=== PATIENT | female | born 1985 | race Caucasian/White ===

== ENCOUNTER 2022-09-05 17:41 | Emergency (ER) | payer OTHER ==
--- OUTSIDE RECORDS SUMMARY | 2022-09-05 17:44 | XMS REPORT | Continuity of Care Document ---
:[address] [facility] t Address [address] [place] [address] Care Team Providers Name Role Phone FELIZMOHINDER MAGALYS Primary Care Physician Unavailable MARCELL LICONA Attending Clinician Unavailable Mack Gardner MD Attending Clinician Az Roberts MD Attending Clinician AZ ROBERTS Attending Clinician Unavailable WATSON RADER Attending Clinician Unavailable Watson Rader MD Attending Clinician Marcell Licona MD Attending Clinician Only, [facility] Attending Clinician Unavailable [facility]Lab Attending Clinician Unavailable KARIE PATEL Attending Clinician Unavailable Linda ANGELES, Kraina Redding Attending Clinician Everardo Juarez MD Attending Clinician Beverly MULLIGAN, Holland Attending Clinician Darlene Babcock MD Attending Clinician Ken Chowdary MD Attending Clinician Jatinder MULLIGAN, Kendrick Attending Clinician Mickey MULLIGAN, Svitlana Attending Clinician Baldo Danielle CRNA Attending Clinician Oz MULLIGAN, Cuco Attending Clinician SILVA FONSECA Attending Clinician Unavailable Lolis MAYA, Tatyana Attending Clinician Marvin MULLIGAN, Marybeth Attending Clinician TATYANA DANIELLE Attending Clinician Unavailable Theodore MULLIGAN, Seth Gerard Attending Clinician SETH DODD Attending Clinician Unavailable Doctor Unassigned, [place] Attending Clinician Unavailable Provider, [facility] Attending Clinician Unavailable Harley MAYA, Silva Attending Clinician MARCELL LICONA Admitting Clinician Unavailable Sejal MULLIGAN, Marcell Talbot Admitting Clinician Ken Chowdary MD Admitting Clinician Payers Payer Name Policy Type Policy Number Effective Date Ex[facility] [id number] 2020 PPO 00:00:00 Problems Condition Condition Condition Status Onset Resolution Last Treating Co mments Source Name Details Category Date Date Treatment Clinician Date Abdominal Abdominal Disease Active 2020-09 Overview: Univers pain, pain, 10-16 Formattin ity of epigastric epigastric 00:00: g of this [place] note Medical might be Branch different from the original. Added automatic ally from request for surgery [id number] Rectal Rectal Disease Active 2020-09 Overview: Univer s bleeding bleeding 10-16 Formattin ity of 00:00: g of [place] note Medical might be Branch different from the original. 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 Status post surgery as a child Cholangiti Cholangiti Disease Active Overview : Univers s s 04-18 Formattin ity of 00:00: g of this [place] note is Medical different Branch from the original. . Atrophic left lobe with no suspiciou s focal lesions. The intrahepa ticbile ducts are beaded and irregular with no definite obstructi on/transi tionpoint . Delayed mural enhanceme nt is seen and cholangit is is suspected . ?2. The extra hepatic CBD is not visualize d. The anatomy at the hepatichi lum is not clear and prior postsurgi sergio changes are suspected . Thepancre as is unremarka ble. Obesity Obesity Disease Active Univers (BMI (BMI 8-05 ity of 30-39.9) 30-39.9) 00:00: [place] [id number] Medical Branch COVID-19 COVID-19 Disease Active Overview: Un jayy virus virus 8-05 Formattin ity of infection infection 00:00: [place] of this [place] 00 note is Medical different Branch from the original. SARS-CoV- 2 NAAT (no units) Date Value 1 Positive (A) 1 Not Detected SARS-CoV- 2 Rapid ID NOW (no units) Date Value 1 Positive (A) Generalize Generalize Disease Active Overview : Univers d d 8-04 Formattin ity of abdominal abdominal 00:00: g of this [place] pain pain 00 note Medical might be Branch different from the original. Added automatic ally from request for surgery [id number] Transamini Transamini Disease Active Overview : Univers tis tis 8-04 Formattin ity of 00:00: g of this [place] 00 note Medical might be Branch different from the original. Added automatic ally from request for surgery [id number] Well woman Well woman Disease Active U nivers exam with exam with 7-16 ity of routine routine 00:00: [place] gynecologi gynecologi 00 Me dical sergio exam sergio exam Branch Absence of Absence of Disease Active U nivers menstruati menstruati 7-16 it y of on on 00:00: [place] [address] Medical Branch Allergies, Adverse Reactions, Alerts Allergy Allergy Status Severity Reaction(s) Onset Inactive Treating Comm ents Source Name Type Date Date Clinician NO KNOWN Drug Active Univers ALLERGIE Class ity of S [place] [facility] Social History Social Habit Start Date Stop Date Quantity Comments Source History SDOH University o f Alcohol Std [place] Medical Drinks Branch History SDOH University o f Alcohol Binge [place] [facility] al Branch History [facility] University o f Alcohol Comment [place] [facility] ical Branch Exposure to 2022-03-09 2022-03-19 Not sure University of SARS-CoV-2 00:00:00 15:24:00 [place] Medical (event) Branch Alcohol intake 2022-03-19 2022-03-19 Lifetime University of 00:00:00 00:00:00 non-drinker [place] Medical (finding) Branch History SDOH 2021-03-28 2021-03-28 1 University o f Alcohol Frequency 00:00:00 00:00:00 [facility] edical [place] Tobacco use and 2020-12-23 2020-12-23 Smokeless tobacco Un iversity of exposure 00:00:00 00:00:00 non-user [facility] Sex [birth year] Universit y of 00:00:00 00:00:00 [facility] Smoking Status Start Date Stop Date Source Never smoked tobacco [facility] Medications Ordered Filled Start Stop Current Ordering Indication Dosage Frequency Signature Comments Components Source Medication Medication Date Date Medication? Clinician (SIG) Name Name dicyclomine Yes [id number] 10mg Take 1 Univers 10 mg 9-12 capsule by ity of capsule 00:00: mouth [place] 00 every 6 Medical (six) Branch hours as needed for Abdominal pain. pantoprazol Yes [id number] 40mg Take 1 Univers e 40 mg EC 7-07 tablet by ity of tablet 00:00: mouth [place] 00 daily. Medical Branch pantoprazol Yes [id number] 40mg Take 1 Univers e 40 mg EC 7-07 tablet by ity of tablet 00:00: mouth [place] 00 daily. Medical Branch ondansetron Yes [id number] 4mg Take 1 Univers (ZOFRAN 1-13 tablet by ity of ODT) 4 mg 00:00: mouth [place] disintegrat 00 every 8 Medic al ing tablet (eight) Branch hours as needed for Nausea and Vomiting (N/V). ondansetron Yes [id number] 4mg Take 1 Univers (ZOFRAN 1-13 tablet by ity of ODT) 4 mg 00:00: mouth [place] disintegrat 00 every 8 Medic al ing tablet (eight) Branch hours as needed for Nausea and Vomiting (N/V). dicyclomine 2020-09 Yes [id number] 10mg Take 1 Univers 10 mg 2-02 capsule by ity of capsule 00:00: mouth [place] 00 every 6 Medical (six) Branch hours as needed for Abdominal pain. dicyclomine 2020-09- No [id number] 10mg Take 1 Univers 10 mg 2- capsule by ity of capsule 00:00: 00:00 mouth [place] 00 :00 every 6 Medical (six) Branch hours as needed for Abdominal pain. benzonatate Yes [id number] 200mg Take 2 Univers 100 mg 7-26 capsules ity of capsule 00:00: [place] (two) Medical times Branch daily as needed for Cough. bromphenira Yes [id number] 5mL Take 5 mL Univers mine-pseudo 7-26 by mouth 4 it y of ephedrine-D 00:00: (four[place] (BROMFED 00 times Medical DM) 2-30-10 daily as Bran ch mg/5 mL needed for syrup Congestion /Allergies . benzonatate Yes [id number] 200mg Take 2 Univers 100 mg 7-26 capsules ity of capsule 00:00: [place] (two) Medical times Branch daily as needed for Cough. bromphenira Yes [id number] 5mL Take 5 mL Univers mine-pseudo 7-26 by mouth 4 it y of ephedrine-D 00:00: (four[place] (BROMFED 00 times Medical DM) 2-30-10 daily as Bran ch mg/5 mL needed for syrup Congestion /Allergies . medroxyPROG Yes [id number] 10mg Take 1 Univers ESTERone 7-16 tablet by ity of (PROVERA) 00:00: mouth [place] 10 mg 00 daily. Medical tablet Branch medroxyPROG 0 Yes [id number] 10mg Take 1 Univers ESTERone 7-16 tablet by ity of (PROVERA) 00:00: mouth [place] 10 mg 00 daily. Medical tablet Branch Immunizations Ordered Filled Immunization Date Status Comments [facility] e Immunization Name Name SARS-COV-2 COVID-19 2021-05-31 Completed Unive rsity of PFIZER VACCINE 00:00:00 [facility] SARS-COV-2 COVID-19 2021-05-31 Completed Unive rsity of PFIZER VACCINE 00:00:00 [facility] SARS-COV-2 COVID-19 2021-04-24 Completed Unive rsity of PFIZER VACCINE 00:00:00 [facility] SARS-COV-2 COVID-19 2021-04-24 Completed Unive rsity of PFIZER VACCINE 00:00:00 [facility] Vital Signs Vital Name Observation Time Observation Value Comments Source Systolic blood 2022-03-19 20:28:00 119 mm[Hg] Univer sity of pressure [facility] Diastolic blood 2022-03-19 20:28:00 80 mm[Hg] Unive rsity of pressure [facility] Heart rate 2022-03-19 20:28:00 73 /min [facility] Body temperature 2022-03-19 20:28:00 36.56 Mandie Univ ersity [facility] Body height 2022-03-19 20:28:00 160 cm [facility] Body weight 2022-03-19 20:28:00 85.775 kg [facility] BMI 2022-03-19 20:28:00 33.50 kg/m2 [facility] Oxygen saturation in 2022-03-19 20:28:00 98 /min [facility] Arterial blood by [facility] Pulse oximetry [place] Procedures This patient has no known procedures. Encounters Start End Encounter Admission Attending Care Care Encounter Source Date/Time Date/Time Type Type Clinicians Facility Department ID 2021-08-15 Outpatient R MARCELL LICONA [facility] FARAZ [id number] Univers 09:34:46 ity of [facility] 2021-07-14 Emergency [facility] [id number] Univers 13:10:47 ity [facility] 2022-06-18 2022-06-18 Outpatient R [facility] [id number] Univers 15:30:00 15:30:00 ity of [facility] 2022-05-25 2022-05-25 Refenoc Gardner [facility] 1.2.840.114 [id number] Univers 00:00:00 00:00:00 Mack KUMAR [id number] ity of [facility] 4.2.7.2.686 [facility] AT [phone] Al justin GARICA 072 Branch [place] 2022-03-19 2022-03-19 Office Mack Gardner [facility] 1.2.840.114 [id number] Univers 15:30:00 16:00:00 Visit Az Roberts SPECIALTY [id number] ity of [place].686 [place] [phone] Al justin GARCIA 072 [facility] 2022-03-19 2022-03-19 Outpatient R COLTON [facility] [id number] Univers 15:30:00 15:30:00 [place] ity [facility] 2022-01-01 2022-01-01 Outpatient R [facility] [id number] Univers 15:30:00 15:30:00 ity [facility] 2021-09-25 2021-09-25 [facility] [id number] Univers 16:00:00 16:52:13 [facility] 2021-09-25 2021-09-25 Office Mcak Gardner [facility] 1.2.840.114 [id number] Univers 16:00:00 16:52:13 Visit Watson Rader SPECIALTY [id number] ity of CARE 4.2.7.2.686 [facility] AT [phone] Al justin GARCIA [address] [place] [address] 2021-09-04 2021-09-04 Outpatient R MARCELL LICONA [facility] [place] [id number] Univers 10:09:00 12:45:00 ity [facility] 2021-09-04 2021-09-04 [facility] 1.2.840.114 [id number] Univers 10:09:00 12:45:00 Encounter [facility] [id number] ity of [place] 4.2.7.2.686 [facility] [phone] [address] ([facility]) 2021-09-04 2021-09-04 [facility] [id number] Univers 11:30:00 12:15:00 Wins[place] SPECIALTY [id number] ity of C[place]2.686 [place] [phone] Al justin GARCIA 020 [facility] 2021-09-03 2021-09-03 Hospital CARL Rader 1.2.840.114 [id number] Univers 08:49:50 23:59:00 Encounter [facility] [id number] ity of CLINICS 4.2.[place].2.686 [place] [phone] [facility] [address] [place] 2021-09-03 2021-09-03 Outpatient R MARCELL LICONA [facility] [id number] Univers 08:30:00 10:05:31 [facility] 2021-09-03 2021-09-03 Laboratory Only, [facility] UNIVERSIT 1.2.84 0.114 [id number] Univers 08:30:00 08:45:00 Only [facility]cell [facility]icon[facility] [id number] ity of CL[place]ICS 4.2.[place].2.686 [place] [phone] [facility] [address] [place] 2021-08-14 2021-08-14 Middleware Architect Vls-Lab [facility] 1.2.840.114 [id number] Univers 16:23:52 16:38:52 Visit Watson Rader SPECIALTY [id number] ity of C[place] 4[place].2.686 [place] [phone] Al justin GARCIA 353 [facility] 2021-08-14 2021-08-14 Outpatient R RAMYA [facility] [id number] Univers 16:30:00 16:30:00 WATSON green [facility] 2021-08-14 2021-08-14 Office Mack Gardner [facility] 1.2.840.114 [id number] Univers 14:42:39 15:12:39 Visit Watson Rader SPECIALTY [id number] ity of C[place] 4.2.[place].2.686 [place] [phone] Al justin GARCIA 072 [facility] 2021-08-14 2021-08-14 Outpatient R RAMYA [facility] [id number] Univers 15:00:00 15:00:00 WATSON green [facility] 2021-08-11 2021-08-11 Telephone Jj [facility] 1.2.999.129 [id number] Univers 00:00:00 00:00:00 Mack SPECIALTY [id number] ity of C[place] 4[place]2.686 [place] [phone] Al justin GARCIA 072 [facility] 2021-07-28 2021-07-28 Telephone Jj [facility] 1.2.951.270 [id number] Univers 00:00:00 00:00:00 Mack SPECIALTY [id number] ity of C[place]2.686 [place] [phone] Al justin GARCIA [address] [place] [address] 2021-07-25 2021-07-25 Emergency E AMANDA, [facility]BL MED [id number] [facility] 09:35:00 17:05:00 SAB 2021-06-12 2021-06-12 Middleware Architect Vls-Lab [facility] 1.2.840.114 [id number] Univers 15:32:43 15:47:43 Visit Watson Rader SPECIALTY [id number] ity of C[place] 4.2.[place].2.686 [place] [phone] Al justin GARCIA 353 [facility] 2021-06-12 2021-06-12 Office Mack Gardner [facility] 1.2.840.114 [id number] Univers 14:43:26 15:13:26 Visit Watson Rader SPECIALTY 350.1.13.10 ity of C[place] 4.[place].2.686 [place] [phone] Al justin GARCIA 072 [facility] 2021-06-12 2021-06-12 Outpatient R [facility] [id number] Univers 15:00:00 15:00:00 ity of [facility] 2021-04-25 2021-04-25 Transition Dion Mckeon 1.2.840.114 [id number] Univers 00:00:00 00:00:00 of Care Karina Garrido 350.1.13.10 i ty of [place].2.686 [place] [phone] [address] 2021-04-16 2021-04-24 Hospital Everardo Juarez 1.2.840.1 14 [id number] Univers 15:15:00 15:43:00 Encounter [place] Paul [id number] ity of [facility] 4.2.7.2.686 [place] Ken Chowdary [phone] Medical 096 Branch 2021-04-22 2021-04-22 Surgery Pallmaegan, 1.2.840.9 [id number] Univers 15:55:00 17:25:00 Marks 97006.1.1 ity of 3.104.2.7 [place] .3.878481 Medica l .8 Branch 2021-04-22 2021-04-22 Anesthesia Svitlana Arevalo 1.2.840.6 [id number] Univers 14:05:00 15:48:00 Event Baldo Danielle 60104.1.1 ity of 3.104.2.7 [place] .3.787578 Medica l .8 Branch 2021-04-22 2021-04-22 Anesthesia [place], 1.2.840.1 [id number] Univers 10:18:57 10:18:57 Event Cuco 44662.1.1 ity of 3.104.2.7 [place] .3.592281 Medica l .8 Branch 2021-04-22 2021-04-22 Travel 1.2.840.1 1.2.769.530 [id number] Univers 00:00:00 00:00:00 29488.1.1 350.1.13.10 ity of 3.104.2.7 4.2.7.3.698 [place] .3.557579 084.8 Medica l .8 Branch 2021-04-16 2021-04-16 Travel 1.2.840.1 1.2.423.514 [id number] Univers 00:00:00 00:00:00 63706.1.1 350.1.13.10 ity of 3.104.2.7 4.2.7.3.698 [place] .3.931084 084.8 Medica l .8 Branch 2021-04-08 2021-04-08 Outpatient Leo FONSECA [facility] [id number] Univers 08:00:00 08:00:00 SILVA ity of [facility] 2021-04-07 2021-04-07 Urgent Tatyana Danielle 1.2.840.8 [id number] Univers 08:00:27 09:35:48 Care Marybeth Wong 11301.1.1 ity of 3.104.2.7 [place] .3.262650 Medica l .8 [place] 2021-04-07 2021-04-07 Outpatient R LOLIS [facility] [id number] Univers 09:00:00 09:00:00 TATYANA ity of [facility] 2021-04-06 2021-04-06 Travel 1.2.840.1 1.2.506.401 [id number] Univers 00:00:00 00:00:00 59336.1.1 350.1.13.10 ity of 3.104.2.7 4.2.7.3.698 [place] .3.033895 084.8 Medica l .8 [place] 2021-03-28 2021-03-28 Office Seth Dodd 1.2.840.2 [id number] Univers 11:48:37 13:00:55 Visit Cam 40475.1.1 ity of 3.104.2.7 [place] .3.477370 Medica l .8 [place] 2021-03-28 2021-03-28 Outpatient R SETH DODD [facility] [id number] Univers 11:45:00 11:45:00 ity of [facility] 2021-03-28 2021-03-28 Orders Doctor 1.2.840.4 [id number] Univers 00:00:00 00:00:00 Only Unassigned, 51413.1.1 ity of [place] 3.104.2.7 [place] .3.873324 Medica l .8 [place] 2021-03-28 2021-03-28 Travel 1.2.840.1 1.2.260.414 [id number] Univers 00:00:00 00:00:00 22950.1.1 350.1.13.10 ity of 3.104.2.7 4.2.7.3.698 [place] .3.569544 084.8 Medica l .8 Branch 2020-12-23 2020-12-23 Urgent Provider, [facility] 1.2.840.114 [id number] Univers 09:44:52 10:04:52 [facility] 350.1.13.10 ity [facility] 4.2.7.2.686 [place] as Deborah [phone] Al diccallie formerly [facility] [address] [place] [address] 2020-12-23 2020-12-23 Outpatient R [facility] [id number] Univers 09:40:00 09:40:00 ity of [facility] Results This patient has no known results.
[2022-09-05 18:09] LABS: Urine Blood Negative (Negative); Urine Glucose Trace (Negative); Urine Protein 1+ (Negative)
[2022-09-05] MEDS ORDERED: METOCLOPRAMIDE 10 MG/2mL INJ ONE (18:48)
[2022-09-05] MEDS ORDERED: DIPHENHYDRAMINE 50 MG/ML VIAL ONE (18:48)
[2022-09-05] MEDS ORDERED: LORazepam 2 MG/ML VIAL ONE (18:48)
[2022-09-05] MEDS ORDERED: FAMOTIDINE 20 MG/2 ML VIAL IV ONE (18:49)
[2022-09-05] MEDS ORDERED: NA CHLORIDE 0.9% 250 ML ONE (18:49)
[2022-09-05] MEDS ORDERED: NA CHLORIDE 0.9% 1,000 ML ONE (18:49)
[2022-09-05 18:56] LABS: Absolute Lymphocytes (CBC) 0.4 K/uL (0.7-4.9); Hematocrit 41.1 % (36.0-45.0); Lymphocytes % 6.5 % (15.3-44.8); MCV 87.7 fL (80-100); MPV 7.8 fL (7.6-11.3); RBC Red Blood Cell Count 4.69 M/uL (3.86-4.86)
[2022-09-05] MEDS ORDERED: ACETAMINOPHEN 325 MG TABLET ONE (19:01)
[2022-09-05 19:14] LABS: Albumin 3.9 g/dL (3.4-5.0); Bilirubin Total 4.5 mg/dL (0.2-1.0); Potassium 3.3 mmol/L (3.5-5.1)
[2022-09-05 19:44] LABS: SARS-COV-2 RT PCR NEGATIVE (NEGATIVE)
--- NOTE | 2022-09-05 19:50 | RAD REPORT ---
EXAM DESCRIPTION: CTAbdomen Pelvis W Contrast - 09/05/2022 7:38 pm CLINICAL HISTORY: Abdominal pain. abdominal pain COMPARISON: CT ABD PELVIS W CONTRAST dated 01/27/2012; MRI ABDOMEN W WO CONTRAST dated 01/28/2012; MRI CHOLANGIOGRAM dated 01/28/2012; CT ABD PELVIS W CONTRAST dated 09/27/2010 TECHNIQUE: Biphasic CT imaging of the abdomen and pelvis was performed with 100 ml non-ionic IV cont rast. All CT scans are performed using dose optimization technique as appropriate and may include automated exposure control or mA/KV adjustment according to patient size. FINDINGS: The lung bases are clear. There are numerous cystic lesions seen in the left lobe of the liver with evidence of left lobe bilia ry dilatation. The duodenal C-loop comes into close approximation with the hepatic hilum. The left br anch of the portal vein is is not well seen and may be chronically thrombosed. The gallbladder is eit her decompressed or not present. The spleen, visualized pancreas, adrenal glands and kidneys are with in normal limits. . No bowel obstruction, free air, free fluid or abscess. Mild rectosigmoid fecal retention. The appendi x is normal. No evidence of significant lymphadenopathy. No suspicious bony findings. IMPRESSION: There is an abnormal appearance to the left lobe liver with multiple areas of cystic dil atation of the biliary tree noted. The gallbladder is either decompressed or absent. These abnormal f indings in the left lobe were present as far back as 2011 study, appearing somewhat less prominent on today's study. Elsewhere, no acute abnormality is detected.
--- NOTE | 2022-09-05 20:16 | ER ---
Nurse's Notes [facility] Name: Francine Brunson Age: 37 yrs Sex: Female : 1985 Arrival Date: 09/05/2022 Time: 17:42 Bed 20 Private MD: Diagnosis: Nausea with vomiting, unspecified;Abdominal pain, unspecified;Abnormal results of liver function studies Presentation: 09/05 17:52 Chief complaint: Patient states: abdominal pain that radiates around both sides to ph back, also c/o N/V, states that she has a hx of GI issues, that this episode started while she was out of town, seen at ER and prescribed medications but she can't keep them down. Coronavirus screen: Vaccine status: Patient reports receiving the 2nd dose of the covid vaccine. Ebola Screen: No symptoms or risks identified at this time. Initial Sepsis Screen: Does the patient meet any 2 criteria? No. Patient's initial sepsis screen is negative. Does the patient have a suspected source of infection? No. Patient's initial sepsis screen is negative. Risk Assessment: Do you want to hurt yourself or someone else? Patient reports no desire to harm self or others. Onset of symptoms was September 05, 2022. 17:52 Method Of Arrival: Ambulatory 17:52 Acuity: BUSHRA 3 ph Triage Assessment: 17:55 General: Appears in no apparent distress. uncomfortable, Behavior is calm, cooperative, ph appropriate for age. Pain: Complains of pain in abdomen Pain radiates to back. Neuro: Level of Consciousness is awake, alert, obeys commands, Oriented to person, place, time, situation. GI: Reports lower abdominal pain, upper abdominal pain, nausea, vomiting. Historical: - Allergies: 17:54 Latex, Natural Rubber; ph - Immunization history:: Adult Immunizations unknown. - Social history:: Smoking status: Patient denies any tobacco usage or history of. Screenin:30 [facility] ED Fall Risk Assessment (Adult) History of falling in the last 3 months, ko1 including since admission No falls in past 3 months (0 pts) Confusion or Disorientation No (0 pts) Intoxicated or Sedated No (0 pts) Impaired Gait No (0 pts) Mobility Assist Device Used No (0 pt) Altered Elimination No (0 pt) Score/Fall Risk Level 0 - 2 = Low Risk Oriented to surroundings, Maintained a safe environment, Educated pt \T\ family on fall prevention, incl call for assistance when getting out of bed, Assessed \T\ reinforced patient's understanding of fall precautions, Provided non-skid footwear, Hourly rounding (assess needs \T\ fall precautionary measures) done. Abuse screen: Denies threats or abuse. Denies injuries from another. Nutritional screening: No deficits noted. Tuberculosis screening: No symptoms or risk factors identified. Assessment: 18:30 General: Appears in no apparent distress. uncomfortable, Behavior is calm, cooperative, ko1 appropriate for age. Pain: Complains of pain in back and abdomen. Neuro: No deficits noted. Cardiovascular: No deficits noted. Respiratory: No deficits noted. GI: Bowel sounds present X 4 quads. Reports lower abdominal pain. GI: Abd is soft Abdomen is tender to palpation. : No deficits noted. EENT: No deficits noted. Derm: No deficits noted. Musculoskeletal: No deficits noted. 19:28 General: Appears comfortable, Behavior is calm, cooperative. Pain: Complains of pain in ha1 abdomen Pain does not radiate. Pain currently is 7 out of 10 on a pain scale. Alleviated by medications. Neuro: Level of Consciousness is awake, alert, obeys commands, Oriented to person, place, time, situation. Cardiovascular: Capillary refill < 3 seconds Patient's skin is warm and dry. Respiratory: Airway is patent Respiratory effort is even, unlabored, Respiratory pattern is regular, symmetrical. GI: Abdomen is flat, non-distended, Bowel sounds present X 4 quads. Abd is soft Abdomen is tender to palpation Reports lower abdominal pain, vomiting. : No signs and/or symptoms were reported regarding the genitourinary system. EENT: No deficits noted. No signs and/or symptoms were reported regarding the EENT system. Derm: Skin is pink, warm \T\ dry. Musculoskeletal: Circulation, motion, and sensation intact. Range of motion: intact in all extremities. 20:20 Reassessment: Patient and/or family updated on plan of care and expected duration. Pain ha1 level reassessed. Patient is alert, oriented x 3, equal unlabored respirations, skin warm/dry/pink. 21:20 Reassessment: Patient and/or family updated on plan of care and expected duration. Pain ha1 level reassessed. Patient is alert, oriented x 3, equal unlabored respirations, skin warm/dry/pink. 22:05 Reassessment: Patient and/or family updated on plan of care and expected duration. Pain ha1 level reassessed. Patient is alert, oriented x 3, equal unlabored respirations, skin warm/dry/pink. pain 9/10. 23:00 Reassessment: Patient and/or family updated on plan of care and expected duration. Pain ha1 level reassessed. Patient is alert, oriented x 3, equal unlabored respirations, skin warm/dry/pink. Vital Signs: 17:52 BP 113 / 53; Pulse 106; Resp 20; Temp 98.4; Pulse Ox 100% on R/A; Weight 86.18 kg; ph Height 5 ft. 3 in. (160.02 cm); Pain 10/10; 18:58 Temp 102.1(O); ph 19:32 BP 107 / 56; Pulse 102; Resp 19 S; Pulse Ox 99% on R/A; ha1 21:15 BP 108 / 50; Pulse 101; Resp 20; Temp 101.6; Pulse Ox 100% on R/A; ha1 22:10 BP 110 / 56; Pulse 100; Resp 20 S; Temp 98.1; ha1 23:00 BP 114 / 60; Pulse 103; Resp 19 S; Pulse Ox 100% on R/A; ha1 17:52 Body Mass Index 33.66 (86.18 kg, 160.02 cm) ph ED Course: 17:42 Patient arrived in ED. as 17:45 Joseph Myers PA is PHCP. [facility] 17:45 Lynsey Foote MD is Attending Physician. jm 17:54 Triage completed. ph 17:55 Arm band placed on Patient placed in an exam room. ph 18:06 Chela Carty, BRIDGETTE is Primary Nurse. ko1 18:21 Patient has correct armband on for positive identification. Placed in gown. Bed in low mm9 position. Call light in reach. Side rails up X 1. Warm blanket given. Pillow given. Pulse ox on. NIBP on. 18:21 Missed attempt(s): 20 gauge in right antecubital area. mm9 18:21 Urine collected: clean catch specimen, tea colored. mm9 19:04 COVID-19/FLU A+B Sent. ph 19:40 CT Abd/Pelvis - IV Contrast Only In Process Unspecified. EDMS 20:50 Initiated transfer to [facility] per Pt request, spoke with Gladis. wm 21:34 Pt accepted for transfer by Dr. Schmitz, Sep. wm 21:49 Inserted saline lock: 20 gauge in right antecubital area, using aseptic technique. bb 22:40 No provider procedures requiring assistance completed. ha1 22:40 Patient transferred, IV remains in place. ha1 Administered Medications: 18:57 Drug: Reglan (metoCLOPramide) 20 mg Route: IVP; Site: left antecubital; ph 18:58 Drug: NS 0.9% 1000 ml Route: IV; Rate: 1 bolus; Site: left antecubital; ph 18:58 Drug: Pepcid (famotidine) 20 mg Route: IVP; Site: left antecubital; ph 18:58 Drug: diphenhydrAMINE 25 mg Route: IVP; Site: left antecubital; ph 18:58 Drug: Ativan (LORazepam) 1 mg Route: IVP; Site: left antecubital; ph 19:04 Drug: Tylenol 650 mg Route: PO; ph 21:30 Drug: Ibuprofen 800 mg Route: PO; ha1 22:05 Drug: Zosyn (piperacillin-tazobactam) 3.375 grams Route: IVPB; Infused Over: 60 mins; ha1 Site: right antecubital; 22:07 Drug: NS 0.9% 1000 ml Route: IV; Rate: 1 bolus; Site: right antecubital; ha1 22:07 Drug: NS 0.9% 1000 ml Route: IV; Rate: 125 ml/hr; Site: right antecubital; ha1 22:40 Follow up: Response: No adverse reaction; IV Status: Infusion continued ha1 22:25 Drug: Zofran (Ondansetron) 4 mg Route: IVP; Site: right antecubital; ha1 22:40 Follow up: Response: No adverse reaction ha1 22:26 Drug: morphine 4 mg Route: IVP; Infused Over: 4 mins; Site: right antecubital; ha1 22:40 Follow up: Response: No adverse reaction; Pain is decreased; RASS: Alert and Calm (0) ha1 Medication: 22:40 VIS not applicable for this client. ha1 Outcome: 20:15 ER care complete, transfer ordered by MD. calzada 22:40 Condition: stable ha1 22:40 Transferred by ground EMS to [facility]. ha1 22:40 Discharge instructions given to patient, Instructed on the need for transfer, Demonstrated understanding of instructions. 23:16 Patient left the ED. ha1 Signatures: Dispatcher [employer] EDMS Joseph Myers PA PA jmm Martinez, Amelia as Ballard, Brenda RN RN bb Nhi Knox RN RN ph Rickie Miller PA PA cp Marsh, Wendy wm Ayala, Heidy, RN RN ha1 Chela Carty RN RN ko1 Mila Fischer mm9 Corrections: (The following items were deleted from the chart) 19:05 17:52 BP 113 / 53; Pulse 06bpm; Resp 20bpm; Pulse Ox 100% RA; Temp 98.4F; 86.18 kg; ph Height 5 ft. 3 in.; BMI: 33.6; Pain 10/10; ph 22:20 20:50 Inititated transfer to [facility] per Pt request, spoke with Gladis mcnulty 09/06 08:26 12 22:40 Response: No adverse reaction; Pain is decreased; RASS: Alert and Calm (0) ha1 ha1
--- NOTE | 2022-09-05 20:16 | EDPHYS ---
Physician Documentation [facility] Name: Francine Brunson Age: 37 yrs Sex: Female : 1985 Arrival Date: 09/05/2022 Time: 17:42 Bed 20 Private MD: ED Physician Lynsey Foote HPI: 09/05 17:54 This 37 yrs old Female presents to ER via Ambulatory with complaints of Abdominal Pain, jmm Back Pain, Vomiting. 17:54 The patient presents with abdominal pain. Onset: The symptoms/episode began/occurred jmm gradually, 2 day(s) ago. Associated signs and symptoms: Pertinent positives: nausea and vomiting. The symptoms are described as achy, burning. Modifying factors: The symptoms are alleviated by nothing, the symptoms are aggravated by nothing. The patient has experienced similar episodes in the past, chronically. Historical: - Allergies: 17:54 Latex, Natural Rubber; ph - Immunization history:: Adult Immunizations unknown. - Social history:: Smoking status: Patient denies any tobacco usage or history of. ROS: 17:54 Constitutional: Negative for fever, chills, and weight loss, Cardiovascular: Negative jmm for chest pain, palpitations, and edema, Respiratory: Negative for shortness of breath, cough, wheezing, and pleuritic chest pain. 17:54 Abdomen/GI: Positive for abdominal pain. 17:54 All other systems are negative. Exam: 17:54 Constitutional: This is a well developed, well nourished patient who is awake, alert, jmm and in no acute distress. Head/Face: atraumatic. Eyes: EOMI, no conjunctival erythema appreciated ENT: Moist Mucus Membranes Neck: Trachea midline, Supple Chest/axilla: Normal chest wall appearance and motion. Cardiovascular: Regular rate and rhythm. No edema appreciated Respiratory: Normal respirations, no respiratory distress appreciated 17:54 Back: Normal ROM Skin: General appearance color normal MS/ Extremity: Moves all extremities, no obvious deformities appreciated, no edema noted to the lower extremities Neuro: Awake and alert Psych: Behavior is normal, Mood is normal, Patient is cooperative and pleasant 17:54 Abdomen/GI: Inspection: abdomen appears normal, Bowel sounds: normal, Palpation: soft, mild abdominal tenderness, in all quadrants. Vital Signs: 17:52 BP 113 / 53; Pulse 106; Resp 20; Temp 98.4; Pulse Ox 100% on R/A; Weight 86.18 kg; ph Height 5 ft. 3 in. (160.02 cm); Pain 10/10; 18:58 Temp 102.1(O); ph 19:32 BP 107 / 56; Pulse 102; Resp 19 S; Pulse Ox 99% on R/A; ha1 21:15 BP 108 / 50; Pulse 101; Resp 20; Temp 101.6; Pulse Ox 100% on R/A; ha1 22:10 BP 110 / 56; Pulse 100; Resp 20 S; Temp 98.1; ha1 23:00 BP 114 / 60; Pulse 103; Resp 19 S; Pulse Ox 100% on R/A; ha1 17:52 Body Mass Index 33.66 (86.18 kg, 160.02 cm) ph MDM: 17:54 Patient medically screened. [facility] 18:26 Data reviewed: vital signs, nurses notes. Counseling: I had a detailed discussion with [facility] the patient and/or guardian regarding: the historical points, exam findings, and any diagnostic results supporting the discharge/admit diagnosis. 21:35 Physician consultation: was contacted at 21:30, regarding regarding transfer, to [facility]. cp patient's condition, accepting physician will be DR Vicente Stoll 09/05 17:55 Order name: CBC with Diff; Complete Time: 19:01 [facility] 09/05 17:55 Order name: CMP; Complete Time: 19:17 [facility] 09/05 17:55 Order name: Lipase; Complete Time: 19:17 [facility] 09/05 18:09 Order name: Urine Dipstick-Ancillary; Complete Time: 18:11 [facility] 09/05 18:56 Order name: COVID-19/FLU A+B; Complete Time: 19:52 [facility] 09/05 17:55 Order name: CT Abd/Pelvis - IV Contrast Only; Complete Time: 19:52 [facility] 09/05 17:55 Order name: IV Saline Lock; Complete Time: 18:57 [facility] 09/05 17:55 Order name: Labs collected and sent; Complete Time: 18:57 [facility] 09/05 17:55 Order name: Urine Dipstick-Ancillary (obtain specimen); Complete Time: 18:09 [facility] 09/05 17:55 Order name: Urine Test (obtain specimen); Complete Time: 18:09 [facility] Administered Medications: 18:57 Drug: Reglan (metoCLOPramide) 20 mg Route: IVP; Site: left antecubital; ph 18:58 Drug: NS 0.9% 1000 ml Route: IV; Rate: 1 bolus; Site: left antecubital; ph 18:58 Drug: Pepcid (famotidine) 20 mg Route: IVP; Site: left antecubital; ph 18:58 Drug: diphenhydrAMINE 25 mg Route: IVP; Site: left antecubital; ph 18:58 Drug: Ativan (LORazepam) 1 mg Route: IVP; Site: left antecubital; ph 19:04 Drug: Tylenol 650 mg Route: PO; ph 21:30 Drug: Ibuprofen 800 mg Route: PO; ha1 22:05 Drug: Zosyn (piperacillin-tazobactam) 3.375 grams Route: IVPB; Infused Over: 60 mins; ha1 Site: right antecubital; 22:07 Drug: NS 0.9% 1000 ml Route: IV; Rate: 1 bolus; Site: right antecubital; ha1 22:07 Drug: NS 0.9% 1000 ml Route: IV; Rate: 125 ml/hr; Site: right antecubital; ha1 22:40 Follow up: Response: No adverse reaction; IV Status: Infusion continued ha1 22:25 Drug: Zofran (Ondansetron) 4 mg Route: IVP; Site: right antecubital; ha1 22:40 Follow up: Response: No adverse reaction ha1 22:26 Drug: morphine 4 mg Route: IVP; Infused Over: 4 mins; Site: right antecubital; ha1 22:40 Follow up: Response: No adverse reaction; Pain is decreased; RASS: Alert and Calm (0) ha1 Disposition Summary: 09/05/22 20:15 Transfer Ordered Transfer Location: [facility] cp Reason: Higher level of care cp Condition: Stable cp Problem: new cp Symptoms: have improved cp Accepting Physician: DR Vicente Chowdary(09/05/22 23:16) ha1 Diagnosis - Nausea with vomiting, unspecified cp - Abdominal pain, unspecified cp - Abnormal results of liver function studies cp Forms: - Medication Reconciliation Form cp - SBAR form cp Signatures: Dispatcher [employer] EDNH Heatheril, Joseph, PA PA jmm Knox, Nhi, RN RN ph Rickie Miller PA PA cp Ayala, Heidy, RN RN ha1 Corrections: (The following items were deleted from the chart) 22:45 20:15 Doctor zheng cp 23:16 22:45 DR Vicente Chowdary cp ha1
[2022-09-05] MEDS ORDERED: NA CHLORIDE 0.9% 100 ML IV ONE (20:21)
[2022-09-05] MEDS ORDERED: PIPERACIL/TAZO 3.375 GM VIAL IV ONE (20:21)
[2022-09-05] MEDS ORDERED: NA CHLORIDE 0.9% 2,000 ML ONE (21:46)
[2022-09-05] MEDS ORDERED: IBUPROFEN 400 MG TAB ONE (22:14)
[2022-09-05] MEDS ORDERED: MORPHINE 4 MG/ML SYR ONE (22:14)
[2022-09-05] MEDS ORDERED: ONDANSETRON 4 MG/2 ML VIAL ONE (22:14)
[2022-09-05 23:26] VITALS: O2SAT 100
[2022-09-05 23:27] VITALS: TEMP 98.1
[2022-09-05 23:28] VITALS: BP 114/60
== END 2022-09-05 23:16 | disposition short-term general hospital (02) ==
LOC: ER 17:41
DX: R10.30 Lower abdominal pain, unspecified (principal); R11.2 Nausea with vomiting, unspecified; R94.5 Abnormal results of liver function studies; Z20.822 Contact with and (suspected) exposure to COVID-19; Z91.040 Latex allergy status; Z91.048 Other nonmedicinal substance allergy status
CPT/HCPCS: 85025; 36415; 81003; 83690; 80053; 0240U; 74177; Q9967; J2765; J1200; J2543; J7050; J7030 ×2; J2405; 99285

== ENCOUNTER 2024-05-19 13:05 | Emergency (ER) | payer OTHER ==
[2024-05-19] MEDS ORDERED: ONDANSETRON 4 MG/2 ML VIAL ONE (13:45)
[2024-05-19] MEDS ORDERED: MORPHINE 4 MG/ML SYR ONE (13:46)
[2024-05-19 13:52] LABS: Specific Gravity 1.005 (1.005-1.030)
[2024-05-19 13:53] LABS: Specific Gravity 1.005 (1.005-1.030); Sqamous Epithelial <5 /HPF (None Seen); Urine Bacteria <20 /HPF (<20); Urine Bilirubin NEGATIVE (Negative); Urine Blood Negative (Negative); Urine Clarity Turbid (Clear); Urine Color Colorless (Yellow); Urine Culture Reflex Order REFLEXED; Urine Glucose NEGATIVE (Negative); Urine Ketones NEGATIVE (Negative); Urine Microscopic Reflex YN ORDER UMIC; Urine Nitrite NEGATIVE (Negative); Urine Protein NEGATIVE (Negative); Urine RBC None Seen /HPF (None Seen); Urine Urobilinogen Normal (Normal)
[2024-05-19 15:08] LABS: Absolute Eosinophils 0.1 K/uL (0-0.5); Absolute Lymphocytes (CBC) 0.8 K/uL (0.7-4.9); Absolute Monocytes 0.6 K/uL (0.1-1.3); Absolute Neutrophil 5.8 K/uL (1.8-8.0); Basophils % 0.2 % (0-1.3); Eosinophils % 0.7 % (0-4.4); Hematocrit 38.9 % (36.0-45.0); Hemoglobin 13.4 g/dL (12.0-15.0); Lymphocytes % 10.9 % (15.3-44.8); MCH 31.5 pg (27.0-35.0); MCHC 34.3 g/dL (32.0-36.0); MCV 91.9 fL (80-100); MPV 8.6 fL (7.6-11.3); Monocytes % 8.3 % (3.3-12.3); Neutrophils % 79.9 % (41.7-73.7); Nucleated Red Blood Cells % 0.2 % (0-0); Platelets 181 thou/uL (152-406); RBC Red Blood Cell Count 4.23 M/uL (3.86-4.86); Red Cell Distribution Width 12.8 % (12.1-15.2)
[2024-05-19 15:14] LABS: PT Prothrombin Time 12.4 SECONDS (9.4-12.5); Protime INR 1.11
[2024-05-19 15:26] LABS: Anion Gap 11.5 mEq/L (5.0-15.0); Bilirubin Total 1.2 mg/dL (0.2-1.0); Globulin 3.9 g/dL (2.3-3.5); Potassium 3.5 mEq/L (3.5-5.1); Protein, Total 7.9 g/dL (6.4-8.2)
[2024-05-19] MEDS ORDERED: KETOROLAC 30 MG/ML INJ ONE (15:55)
[2024-05-19] MEDS ORDERED: NA CHLORIDE 0.9% 1,000 ML ONE (15:55)
--- NOTE | 2024-05-19 15:59 | RAD REPORT ---
EXAM DESCRIPTION: CT - Abdomen Pelvis W Contrast - 05/19/2024 3:18 pm CLINICAL HISTORY: ABD PAIN COMPARISON: Abdomen Pelvis W Contrast dated 09/05/2022; CT ABD PELVIS W CONTRAST dated 01/27/2012; MRICHOLANGIOGRAM dated 01/28/2012 TECHNIQUE: Thin cut axial CT imaging of the abdomen and pelvis was performed following intravenous a dministration of iodinated contrast. Multiplanar reformats were generated and reviewed. All CT scans are performed using dose optimization technique as appropriate and may include automated exposure control or mA/KV adjustment according to patient size. FINDINGS: No suspicious findings in the lung bases. The liver again shows atrophic changes involving the left lobe. Central intrahepatic biliary radicles prominence with beading, stable in appearance. A cystic lesion versus ectatic bile duct segment in t he central left lobe measuring up to 2.7 cm appears new or progressive since the prior exam, but demo nstrated a somewhat similar appearance or older abdomen MRI dated 01/28/2012. Spleen, adrenal glands, and pancreas show no suspicious findings. Gallbladder is unremarkable in appearance. Common bile geo t is not dilated. Symmetric renal function is seen with no hydronephrosis or suspicious renal mass. No dilated bowel loops or bowel wall thickening. No free air, free fluid or inflammatory stranding. N o hernia, mass or bulky lymphadenopathy. The urinary bladder is without significant finding. No suspicious bony findings. IMPRESSION: Essentially stable appearance of regional atrophic changes involving the left liver lobe , as well as central intrahepatic biliary radicles prominence with beaded appearance. Cystic lesion o r ectatic ductal segment in the central left liver lobe, appears stable compared to a prior MRI, with a transient appearance possibly relating to ductal communication. The common bile duct does not appe ar dilated on CT. The findings most likely relate to chronic inflammatory or fibrotic process such as primary or post infectious sclerosing cholangitis, versus sequelae of prior treatment or interventio n. Please correlate clinically. No other acute intra-abdominal process.
[2024-05-19] MEDS ORDERED: METRONIDAZOLE 500mg IVPB 500 MG/100 ML BAG IV ONE (18:12)
[2024-05-19] MEDS ORDERED: FENTANYL CITR 100 MCG/2 ML ONE (18:12)
[2024-05-19] MEDS ORDERED: PANTOPRAZOLE 40 MG INJ ONE (18:12)
--- NOTE | 2024-05-19 18:14 | ER ---
Nurse's Notes [facility] Name: Francine Brunson Age: 39 yrs Sex: Female : 1985 Arrival Date: 05/19/2024 Time: 13:05 Bed 5 Private MD: Diagnosis: Upper abdominal pain, unspecified;Liver disease, unspecified Presentation: 05/19 13:34 Chief complaint: Patient states: Ride sided abdominal pain radiates to right flank X 2 ld1 days. Pt reports having liver disease. Coronavirus screen: At this time, the client does not indicate any symptoms associated with coronavirus-19. Ebola Screen: No symptoms or risks identified at this time. Initial Sepsis Screen: Does the patient meet any 2 criteria? No. Patient's initial sepsis screen is negative. Does the patient have a suspected source of infection? No. Patient's initial sepsis screen is negative. Risk Assessment: Do you want to hurt yourself or someone else? Patient reports no desire to harm self or others. Onset of symptoms was May 19, 2024. 13:34 Method Of Arrival: Ambulatory ld1 13:34 Acuity: BUSHRA 3 ld1 Triage Assessment: 13:35 General: Appears in no apparent distress. uncomfortable, Behavior is calm, cooperative, ld1 appropriate for age. Pain: Complains of pain in right upper quadrant and right lower quadrant Pain radiates to right mid back and right low back Pain currently is 10 out of 10 on a pain scale. Quality of pain is described as throbbing, Pain began 2-3 days ago. Is continuous. EENT: No signs and/or symptoms were reported regarding the EENT system. Neuro: Level of Consciousness is awake, alert, obeys commands, Oriented to person, place, time, situation, Appropriate for age. Cardiovascular: Capillary refill < 3 seconds Patient's skin is warm and dry. Respiratory: Airway is patent Respiratory effort is even, unlabored. GI: Abdomen is round non-distended, Reports lower abdominal pain, upper abdominal pain. : No signs and/or symptoms were reported regarding the genitourinary system. Derm: No signs and/or symptoms reported regarding the dermatologic system. Musculoskeletal:. Historical: - Allergies: 13:35 Latex; ld1 - PMHx: 13:35 Liver disease; ld1 - PSHx: 13:35 Oophorectomy; ld1 - Immunization history:: Adult Immunizations up to date. - Infectious Disease History:: Denies. - Social history:: Smoking status: Patient denies any tobacco usage or history of. Screenin:30 [facility] ED Fall Risk Assessment (Adult) History of falling in the last 3 months, rs5 including since admission No falls in past 3 months (0 pts) Confusion or Disorientation No (0 pts) Intoxicated or Sedated No (0 pts) Impaired Gait No (0 pts) Mobility Assist Device Used No (0 pt) Altered Elimination No (0 pt) Score/Fall Risk Level 0 - 2 = Low Risk Oriented to surroundings, Maintained a safe environment. Abuse screen: Denies threats or abuse. Nutritional screening: No deficits noted. Tuberculosis screening: No symptoms or risk factors identified. Assessment: 13:30 General: Appears in no apparent distress. uncomfortable, Behavior is calm, cooperative. rs5 Pain: Complains of pain in abdomen Pain currently is 8 out of 10 on a pain scale. Quality of pain is described as aching, Is continuous. Neuro: Level of Consciousness is awake, alert, obeys commands, Oriented to person, place, time, situation. Cardiovascular: Patient's skin is warm and dry. Respiratory: Airway is patent Respiratory effort is even, unlabored, Respiratory pattern is regular, symmetrical. GI: Abdomen is round non-distended, Bowel sounds present X 4 quads. Abd is soft and non tender X 4 quads. Reports. : No signs and/or symptoms were reported regarding the genitourinary system. EENT: No signs and/or symptoms were reported regarding the EENT system. Derm: Skin is intact, Skin is pink, warm \T\ dry. Musculoskeletal: Range of motion: intact in all extremities. 14:28 Reassessment: Patient and/or family updated on plan of care and expected duration. Pain rs5 level reassessed. Patient is alert, oriented x 3, equal unlabored respirations, skin warm/dry/pink. 15:14 Reassessment: Patient and/or family updated on plan of care and expected duration. Pain rs5 level reassessed. Patient is alert, oriented x 3, equal unlabored respirations, skin warm/dry/pink. Patient denies pain at this time. Patient states feeling better. Patient states symptoms have improved. 16:05 Reassessment: No changes from previously documented assessment. rs5 17:05 Reassessment: provider notified pt is experiencing pain . Pain: Complains of pain in rs5 abdomen Pain currently is 8 out of 10 on a pain scale. Quality of pain is described as aching, Is continuous. 17:06 Reassessment: pt up for discharge, awaiting abx to finish, prior to discharge. rs5 18:12 Reassessment: Patient and/or family updated on plan of care and expected duration. Pain rs5 level reassessed. Patient is alert, oriented x 3, equal unlabored respirations, skin warm/dry/pink. 18:36 Reassessment: No changes from previously documented assessment. rs5 Vital Signs: 13:34 BP 128 / 83; Pulse 98; Resp 18; Temp 97.8(TE); Pulse Ox 100% on R/A; Weight 74.84 kg; ld1 Height 5 ft. 3 in. ; Pain 10/10; 14:29 BP 114 / 78; Pulse 88; Resp 18; Pulse Ox 99% on R/A; rs5 18:36 BP 120 / 71; Pulse 80; Resp 17; Pulse Ox 99% on R/A; rs5 13:34 Body Mass Index 29.23 (74.84 kg, 160.02 cm) ld1 13:34 Pain Scale: Adult ld1 ED Course: 13:08 Patient arrived in ED. mr 13:08 Nicki Villalobos PA-C is PHCP. sb4 13:08 Rickie Roberts MD is Attending Physician. sb4 13:30 Patient has correct armband on for positive identification. Placed in gown. Bed in low rs5 position. Call light in reach. Side rails up X2. 13:30 No provider procedures requiring assistance completed. rs5 13:35 Triage completed. ld1 13:35 Arm band placed on right wrist. ld1 14:00 Missed attempt(s): 22 gauge in left antecubital area. Bleeding controlled, band aid aa5 applied, catheter tip intact. 14:02 Missed attempt(s): 22 gauge in left forearm. Bleeding controlled, band aid applied, aa5 catheter tip intact. 14:31 First set of blood cultures drawn by me. hb 14:52 Initial lab(s) drawn, by me, sent to lab. Second set of blood cultures drawn by me. hb Inserted saline lock: 20 gauge in left antecubital area, using aseptic technique. Blood collected. Flushed with 10 mL NS. 15:20 CT Abd/Pelvis - IV Contrast Only In Process Unspecified. EDMS 19:05 IV discontinued, intact, bleeding controlled, No redness/swelling at site. Pressure rs5 dressing applied. Administered Medications: 15:00 Drug: Ondansetron IVP 4 mg IVP once; over 2 minutes Route: IVP; Site: left antecubital; rs5 15:13 Drug: morphine IVP or IV 4 mg IVP once over 4 mins Route: IVP; Infused Over: 4 mins; rs5 Site: left antecubital; 16:00 Drug: NS 0.9% IV 1000 ml IV at 1 bolus Per protocol; 1000 mL bolus Route: IV; Rate: 1 aa5 bolus; Site: left antecubital; 16:00 Drug: Ketorolac IVP 15 mg IVP once Route: IVP; Site: left antecubital; aa5 17:28 Drug: Pantoprazole IVP 40 mg IVP once Route: IVP; Site: left antecubital; rs5 17:30 Drug: fentaNYL (PF) IVP 50 mcg IVP once Route: IVP; Site: left antecubital; rs5 18:10 Drug: metroNIDAZOLE IVPB 500 mg 100 ml IVPB at 200 ml/hr once over 30 mins Volume: 100 rs5 ml; Route: IVPB; Rate: 200 ml/hr; Infused Over: 30 mins; Site: left antecubital; Medication: 14:29 VIS not applicable for this client. rs5 Outcome: 18:13 Discharge ordered by . sb4 19:05 Discharged to home ambulatory, with family, rs5 19:05 Condition: stable 19:05 Discharge instructions given to patient, family, Instructed on discharge instructions, follow up and referral plans. medication usage, Demonstrated understanding of instructions, follow-up care, medications, Prescriptions given X 3, 19:05 Patient left the ED. rs5 Signatures: Dispatcher [employer] EDLA HornCarissa choi, Reg Reg mr PeresInge RN RN aa5 Idalmis Perrin RN RN Samantha Olguin RN RN ld1 Nicki Villalobos PA-Thania PA-C sb4 Orozco, William, RN RN rs5 Corrections: (The following items were deleted from the chart) 15:05 15:03 Inserted saline lock: 20 gauge in left antecubital area, using aseptic technique. hb Blood collected. Flushed with 10 mL NS hb 15: 14:54 Initial lab(s) drawn, by me, sent to lab. Second set of blood cultures drawn hb hb 18:36 18:35 Reassessment: pt up for discharge, awaiting abx to finish, prior to discharge. rs5rs5 19:33 13:39 Inge Peres, RN is Primary Nurse. aa5 aa5
--- NOTE | 2024-05-19 18:14 | EDPHYS ---
Physician Documentation [facility] Name: Francine Brunson Age: 39 yrs Sex: Female : 1985 Arrival Date: 05/19/2024 Time: 13:05 Bed 5 Private MD: UZMA Physician Rickie Roberts HPI: 05/19 13:38 This 39 yrs old Female presents to ER via Ambulatory with complaints of Abdominal Pain. sb4 13:38 Patient with history of liver disease presents today with complaints of right upper sb4 abdominal pain and nausea. 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 Was told about 4 years ago that now her liver is atrophying and she will eventually need a liver transplant. She sees hepatology and GI, Dr. Ruiz at [facility] every 6 months. States that she takes a lot of medication to manage the disease progression but does have flare ups every 6 months or so. States she most recently had a flare up 3 months ago, was admitted at [facility] for 8 days. . Historical: - Allergies: 13:35 Latex; ld1 - PMHx: 13:35 Liver disease; ld1 - PSHx: 13:35 Oophorectomy; ld1 - Immunization history:: Adult Immunizations up to date. - Infectious Disease History:: Denies. - Social history:: Smoking status: Patient denies any tobacco usage or history of. ROS: 13:38 Constitutional: Negative for fever, chills, and weight loss, sb4 13:38 Abdomen/GI: Positive for abdominal pain, nausea, 13:38 All other systems are negative, Exam: 13:38 Head/Face: Normocephalic, atraumatic. Eyes: Extra-ocular motions intact. Periorbital sb4 areas with no swelling, redness, or edema. ENT: Mucous membranes moist. Cardiovascular: Regular rate and rhythm with a normal S1 and S2. Respiratory: Lungs have equal breath sounds bilaterally, clear to auscultation and percussion. No rales, rhonchi or wheezes noted. No increased work of breathing, no retractions or nasal flaring. Skin: Warm, dry with normal turgor. Normal color with no rashes, no lesions, and no evidence of cellulitis. 13:38 Constitutional: The patient appears alert, awake, uncomfortable, 13:38 Abdomen/GI: Inspection: scar(s), are noted in the suprapubic area and right upper quadrant, Bowel sounds: normal, Palpation: soft, mild abdominal tenderness, in the right upper quadrant and left upper quadrant, Liver: tenderness, that is mild, Vital Signs: 13:34 BP 128 / 83; Pulse 98; Resp 18; Temp 97.8(TE); Pulse Ox 100% on R/A; Weight 74.84 kg; ld1 Height 5 ft. 3 in. ; Pain 10/10; 14:29 BP 114 / 78; Pulse 88; Resp 18; Pulse Ox 99% on R/A; rs5 18:36 BP 120 / 71; Pulse 80; Resp 17; Pulse Ox 99% on R/A; rs5 13:34 Body Mass Index 29.23 (74.84 kg, 160.02 cm) ld1 13:34 Pain Scale: Adult ld1 MDM: 13:26 Patient medically screened. sb4 18:14 Data reviewed: vital signs, nurses notes, lab test result(s), radiologic studies, and sb4 as a result, I will discharge patient. Counseling: I had a detailed discussion with the patient and/or guardian regarding the historical points, exam findings, and any diagnostic results supporting the discharge/admit diagnosis, lab results, radiology results, the need for outpatient follow up, hepatology, to return to the emergency department if symptoms worsen or persist or if there are any questions or concerns that arise at home. 05/19 13:37 Order name: Blood Culture Adult (2) [facility] 05/19 13:37 Order name: CBC with Diff; Complete Time: 15:09 [facility] 05/19 13:37 Order name: CMP; Complete Time: 15:27 [facility] 05/19 13:37 Order name: Lactate w/ 2H reflex if indic.; Complete Time: 15:29 [facility] 05/19 13:37 Order name: Protime (+inr); Complete Time: 15:16 [facility] 05/19 13:37 Order name: Ptt, Activated; Complete Time: 15:16 [facility] 05/19 13:37 Order name: Urinalysis w/ reflexes; Complete Time: 13:59 [facility] 05/19 13:37 Order name: Test, Urine; Complete Time: 13:53 [facility] 05/19 13:37 Order name: AMMONIA; Complete Time: 15:26 sb4 05/19 13:56 Order name: Urine Culture EDMS 05/19 13:37 Order name: CT Abd/Pelvis - IV Contrast Only; Complete Time: 16:00 sb4 05/19 13:37 Order name: Accucheck; Complete Time: 15:13 sb4 05/19 13:37 Order name: Cardiac monitoring; Complete Time: 15:13 sb4 05/19 13:37 Order name: IV Saline Lock - Large Bore; Complete Time: 15:13 sb4 05/19 13:37 Order name: Labs collected and sent; Complete Time: 15:13 sb4 05/19 13:37 Order name: O2 Per Protocol; Complete Time: 15:13 sb4 05/19 13:37 Order name: O2 Sat Monitoring; Complete Time: 15:13 sb4 05/19 13:37 Order name: Vital Signs; Complete Time: 15:13 sb4 05/19 16:15 Order name: PO challenge; Complete Time: 17:15 sb4 Administered Medications: 15:00 Drug: Ondansetron IVP 4 mg IVP once; over 2 minutes Route: IVP; Site: left antecubital; rs5 15:13 Drug: morphine IVP or IV 4 mg IVP once over 4 mins Route: IVP; Infused Over: 4 mins; rs5 Site: left antecubital; 16:00 Drug: NS 0.9% IV 1000 ml IV at 1 bolus Per protocol; 1000 mL bolus Route: IV; Rate: 1 aa5 bolus; Site: left antecubital; 16:00 Drug: Ketorolac IVP 15 mg IVP once Route: IVP; Site: left antecubital; aa5 17:28 Drug: Pantoprazole IVP 40 mg IVP once Route: IVP; Site: left antecubital; rs5 17:30 Drug: fentaNYL (PF) IVP 50 mcg IVP once Route: IVP; Site: left antecubital; rs5 18:10 Drug: metroNIDAZOLE IVPB 500 mg 100 ml IVPB at 200 ml/hr once over 30 mins Volume: 100 rs5 ml; Route: IVPB; Rate: 200 ml/hr; Infused Over: 30 mins; Site: left antecubital; Disposition Summary: 05/19/24 18:13 Discharge Ordered Notes: Location: Home sb4 Problem: an acute exacerbation sb4 Symptoms: have improved sb4 Condition: Stable sb4 Diagnosis - Upper abdominal pain, unspecified sb4 - Liver disease, unspecified sb4 Followup: sb4 - With: Emergency Department - When: As needed - Reason: Trouble breathing, Worsening of condition Discharge Instructions: - Discharge Summary Sheet sb4 - Abdominal Pain, Adult sb4 Forms: - Antibiotic Education sb4 - Prescription Opioid Use sb4 - Patient Portal Instructions sb4 - Leadership Thank You Letter sb4 Prescriptions: - pantoprazole 40 mg Oral tablet, delayed release (enteric coated) - take 1 tablet ORAL route once daily; 30 tablet; Refills: 0, Product Selection sb4 Permitted - Flagyl 500 mg Oral Tablet - take 1 tablet ORAL route every 12 hours for 7 days; 14 tablet; Refills: 0, sb4 Product Selection Permitted - Tramadol 50 mg Oral Tablet - take 1 tablet ORAL route every 8 hours as needed; 12 tablet; Refills: 0, sb4 Product Selection Permitted Addendum: 05/27/2024 15:35 Co-signature as Attending Physician, Rickie Roberts MD I agree with the assessment and c rachel plan of care. Signatures: Dispatcher [employer] EDRickie Keith MD MD cha Calderon, Audri, RN RN aa5 Samantha Olguin RN RN ld1 Nicki Villalobos PA-C PAJenniC sb4 William Orozco, RN RN rs5 Corrections: (The following items were deleted from the chart) 05/19 13:37 13:37 BLOOD CULTURE*+BA.LAB.BRZ ordered. EDMS EDMS 13:37 13:37 CBC+H.LAB.BRZ ordered. EDMS EDMS 13:37 13:37 COMPREHENSIVE METABOLIC PANEL+C.LAB.BRZ ordered. EDMS EDMS 13:37 13:37 LACTATE+C.LAB.BRZ ordered. EDMS EDMS 13:37 13:37 PROTIME (+INR)+COAG.LAB.BRZ ordered. EDMS EDMS 13:37 13:37 PTT, ACTIVATED+COAG.LAB.BRZ ordered. EDMS EDMS 13:37 13:37 Urinalysis+U.LAB.BRZ ordered. EDMS EDMS 13:37 13:37 Test, Urine+UC.LAB.BRZ ordered. EDMS EDMS 13:37 13:37 AMMONIA+C.LAB.BRZ ordered. EDMS EDMS 13:37 13:37 Abdomen Pelvis W Con+CT.RAD.BRZ ordered. EDMS EDMS 13:41 13:38 Patient reports extensive history of liver disease. States that she was diagnosed sb4 with biliary atresia as an . Was told about 4 years ago that now her liver is atrophying and she will eventually need a liver transplant. She sees hepatology and GI at [facility] every 6 months. States that she takes a lot of medication to manage the disease progression but does have flare ups every 6 months or so. States she most recently had a flare up 3 months ago, was admitted at [facility] for 8 days. sb4 13:48 13:38 Patient with history of liver disease presents today with complaints of right sb4 upper abdominal pain and nausea. 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 Was told about 4 years ago that now her liver is atrophying and she will eventually need a liver transplant. She sees hepatology and GI at [facility] every 6 months. States that she takes a lot of medication to manage the disease progression but does have flare ups every 6 months or so. States she most recently had a flare up 3 months ago, was admitted at [facility] for 8 days. . sb4
[2024-05-19 19:38] VITALS: TEMP 97.8
[2024-05-19 19:40] VITALS: BP 120/71; O2SAT 99
== END 2024-05-19 19:05 | disposition home or self-care (01) ==
LOC: ER 13:05
DX: K76.9 Liver disease, unspecified (principal); R11.0 Nausea
CPT/HCPCS: 87040 ×2; 87088; 85025; 81001; 87086; 36415; 82140; 81025; 85610; 83605; 85730; 80053; 74177; 96375; 96374; 99284; Q9967; J2470; J3010; J2405; J7030

== ENCOUNTER 2024-12-09 12:38 | Emergency (ER) | payer OTHER ==
[2024-12-09] MEDS ORDERED: ONDANSETRON 4 MG (ODT) TAB ONE (13:14)
[2024-12-09] MEDS ORDERED: MORPHINE 4 MG/ML SYR ONE (13:15)
--- NOTE | 2024-12-09 14:35 | RAD REPORT ---
EXAMINATION: XR RIGHT SHOUDLER CLINICAL INDICATION: Female, 39 years old. Pain;Swelling RIGHT TECHNIQUE:Two view radiograph of the right shoulder were obtained. COMPARISON: No prior exam. FINDINGS: No bone or joint abnormality detected. IMPRESSION: No acute or significant abnormalities.
--- NOTE | 2024-12-09 14:39 | RAD REPORT ---
EXAM: XR Hand Right 3 View HISTORY: Swelling;Pain COMPARISON: None TECHNIQUE: 3 radiographic views of the RIGHT hand submitted. FINDINGS: Metallic ring along the 4th digit limits evaluation. No evidence of acute fracture or dislo cation. Joint alignment is maintained. No soft tissue swelling is seen.. No significant degenerative changes are present. IMPRESSION: No significant bone or joint abnormality.
--- NOTE | 2024-12-09 14:41 | RAD REPORT ---
EXAMINATION: XR Hip Right 2 View CLINICAL INDICATION: Female, 39 years old. Swelling;Pain TECHNIQUE: 2 view radiograph of the right hip were obtained. COMPARISON: No prior exam. FINDINGS: No evidence of fracture or dislocation. Normal alignment. No evidence of arthropathy or oth er focal bone lesion. Soft tissues are unremarkable. IMPRESSION: No acute or significant abnormalities.
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
--- NOTE | 2024-12-09 15:07 | EDPHYS ---
Physician Documentation [facility] Name: Francine Brunson Age: 39 yrs Sex: Female : 1985 Arrival Date: 12/09/2024 Time: 12:38 Bed 24 Private MD: ED Physician Kaylyn Soto HPI: 12/09 17:07 This 39 yrs old Female presents to ER via Ambulatory with complaints of Fall dr5 Injury. 17:07 Details of fall: The patient fell. Onset: The symptoms/episode began/occurred acutely. dr5 Patient is a 39-year-old female with history of cirrhosis from and gastroparesis coming in with a fall that occurred today onto right shoulder, right hip and right fourth digit. Patient reports swelling to right fourth digit with swelling.. 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 - Infectious Disease History:: Denies. - Social history:: Smoking status: Patient denies any tobacco usage or history of. ROS: 17:07 Constitutional: as per hpi dr5 Exam: 17:07 Constitutional: This is a well developed, well nourished patient who is awake, alert, dr5 and in no acute distress. Head/Face: Normocephalic, atraumatic. Eyes: Pupils equal round and reactive to light, extra-ocular motions intact. Lids and lashes normal. Conjunctiva and sclera are non-icteric and not injected. Cornea within normal limits. Periorbital areas with no swelling, redness, or edema. Neck: Trachea midline, no thyromegaly or masses palpated, and no cervical lymphadenopathy. Supple, full range of motion without nuchal rigidity, or vertebral point tenderness. No Meningismus. Chest/axilla: Normal chest wall appearance and motion. Nontender with no deformity. No lesions are appreciated. Cardiovascular: Regular rate and rhythm with a normal S1 and S2. Normal PMI, no JVD. No pulse deficits. Abdomen/GI: Soft, non-tender, non-distended Back: No spinal tenderness. No costovertebral tenderness. Full range of motion. Skin: Warm, dry with normal turgor. Normal color with no rashes, no lesions, and no evidence of cellulitis. Neuro: Awake and alert, GCS 15, oriented to person, place, time, and situation. Cranial nerves II-XII grossly intact. Motor strength 5/5 in all extremities. Sensory grossly intact. Cerebellar exam normal. Normal gait. 17:07 Musculoskeletal/extremity: Extremities: noted in the anterior aspect of right shoulder and posterior aspect of right shoulder: FROM. No tenderness to palpation. NVI, noted in the right hip: tenderness, noted in the dorsal aspect of middle phalanx of right ring finger and dorsal aspect of proximal phalanx of right ring finger: swelling, tenderness, ROM: no acute changes, Circulation is intact in all extremities. Sensation intact. Vital Signs: 13:00 BP 122 / 84; Pulse 68; Resp 16 S; Temp 97.6(TE); Pulse Ox 100% on R/A; Weight 81.65 kg; aa5 Height 5 ft. 3 in. ; Pain 6/10; 13:00 Body Mass Index 31.89 (81.65 kg, 160.02 cm) aa5 13:00 Pain Scale: Adult aa5 Procedures: 17:07 Splinting: Splint applied to right ring finger using finger splint, applied by nurse. dr5 Examined by me, post splint application: neurovascular intact, 2+ distal pulses palpable, brisk capillary refill noted, Patient tolerated well. MDM: 12:55 Medical Screening Exam initiated dr5 17:07 Differential diagnosis: abrasion, fracture, sprain, strain. Data reviewed: vital signs, dr5 nurses notes, radiologic studies, plain films. I considered the following discharge prescriptions or medication management in the emergency department Medications were administered in the Emergency Department. See MAR. Care significantly affected by the following chronic conditions: Liver Disease. Care significantly affected by the following Social Determinants of Health: Poor access to healthcare and/or lack of insurance, Poor access to transportation, Problems related to employment. Counseling: I had a detailed discussion with the patient and/or guardian regarding the historical points, exam findings, and any diagnostic results supporting the discharge/admit diagnosis, the presence of at least one elevated blood pressure reading (>120/80) during this emergency department visit, radiology results, the need for outpatient follow up, for definitive care, a family practitioner, a orthopedic surgeon, to return to the emergency department if symptoms worsen or persist or if there are any questions or concerns that arise at home. Medication response: morphine markedly relieved the patient's pain. Symptoms have improved. Response to treatment: the patient's symptoms have markedly improved after treatment. ED course: X-ray did not reveal any fracture. On my wet read, concern for possible fourth digit fracture on lateral view. Patient was placed in finger splint, radiology report printed, and CD created and given to patient in discharge report. Recommended patient follow-up with orthopedics in 1 week for further management and care. All questions answered. Patient is feeling better. Strict ER precautions given. 12/09 13:04 Order name: Shoulder Right (2 View) XRAY; Complete Time: 14:39 [facility] 12/09 13:04 Order name: Hip Right 2 View XRAY; Complete Time: 14:42 dr5 12/09 13:04 Order name: Hand Right 3 View XRAY; Complete Time: 14:42 dr5 12/09 14:50 Order name: Finger Splint; Complete Time: 15:19 dr5 Administered Medications: 13:43 Drug: Ondansetron PO 4 mg PO once Route: PO; aa5 15:19 Follow up: Response: No adverse reaction cm10 13:44 Drug: morphine IM 4 mg IM once Route: IM; Site: left gluteus; aa5 14:00 Follow up: Response: No adverse reaction; Pain is decreased aa5 15:19 Follow up: Response: No adverse reaction cm10 Disposition Summary: 12/09/24 15:06 Discharge Ordered Notes: Location: Home dr5 Condition: Stable dr5 Diagnosis - Displaced fracture of distal phalanx of right ring finger dr5 Followup: dr5 - With: Emergency Department - When: As needed - Reason: Worsening of condition Followup: dr5 - With: Private Physician - When: 1 - 2 days - Reason: Recheck today's complaints, Continuance of care, Re-evaluation by your physician Followup: dr5 - With: Major Moses MD - When: 1 week - Reason: Recheck today's complaints, Continuance of care, Re-evaluation by your physician Discharge Instructions: - Discharge Summary Sheet dr5 - Finger Fracture, Adult dr5 Forms: - Medication Reconciliation Form dr5 - Patient Portal Instructions dr5 - Leadership Thank You Letter dr5 Prescriptions: - Tramadol 50 mg Oral Tablet - take 1 tablet ORAL route every 8 hours as needed; 12 tablet; Refills: 0, dr5 Product Selection Permitted Signatures: Dispatcher [employer] EDMN Inge Peres, RN RN aa5 Orlando Pope, QUALITY ASSURANCE-C QUALITY ASSURANCE-Cdr5 Ingrid Fischer RN cm10 Corrections: (The following items were deleted from the chart) 13:04 13:04 Hand Right 3 View+[email or web address] ordered. EDMS EDMS 13:24 Immunization history: Adult Immunizations unknown, aa5 aa5 13:24 Infectious Disease History: Denies. aa5 aa5 13:24 Social history: Smoking status: Patient denies any tobacco usage or history of. aa5 aa5
[2024-12-09 15:26] VITALS: BP 122/84; TEMP 97.6; O2SAT 100
== END 2024-12-09 15:21 | disposition home or self-care (01) ==
LOC: ER 12:38
PROC: 2W3JX1Z Immobilization of Right Finger using Splint (ICD-10-PCS; principal; 2024-12-09)
DX: S62.634A Displaced fracture of distal phalanx of right ring finger, initial encounter for closed fracture (principal); M25.551 Pain in right hip; M25.511 Pain in right shoulder; W18.30XA Fall on same level, unspecified, initial encounter
CPT/HCPCS: 73130; 73502; 73030; 29130; Q0162; 96372; 99284